=== PATIENT | male | born 1965 | race Caucasian/White ===

== ENCOUNTER 2020-04-12 16:33 | Emergency (ER) | payer OTHER, SELFPAY ==
[2020-04-12] VITALS (7 sets, daily range): BP systolic 109–127; BP diastolic 66–75; PULSE 79–98; RESP 15–21; TEMP 36.8; O2SAT 95–98; BMI 21.8
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
[2020-04-12] MEDS: ibuprofen 600 mg Tablet PO (18:00)
[2020-04-12] MEDS: iohexol 300 mg/mL 100 mL Btl IV (18:27)
[2020-04-12] MEDS: sodium chloride 0.9% 1,000 ML 125 ML IV (18:33)
[2020-04-12 18:48] LABS: Basophils % 0.2 %; Eosinophils % 0.1 %; Hematocrit 42.8 % (42.0-52.0); Hemoglobin 13.8 g/dL (11.7-16.6); Lymphocytes # 0.6 10^3/uL (0.8-4.8); Lymphocytes % 3.4 %; Mean Corpuscular HGB Conc 32.2 g/dL (30.0-36.0); Mean Corpuscular Hemoglobin 30.4 pg (28.0-34.0); Mean Corpuscular Volume 94.3 fL (80-94); Mean Platelet Volume 9.8 fL (7.4-10.4); Monocytes # 0.7 10^3/uL (0.2-0.9); Monocytes % 4.2 %; Neutrophils # 15.99 10^3/uL (1.8-7.7); Neutrophils % 91.2 %; Nucleated Red Blood Cells % 0 %; Platelet Count 189 10^3/cmm (130-400); Red Blood Count 4.54 10^6/uL (4.1-5.3); Red Cell Distribution Width 11.9 % (12.1-15.1); White Blood Count 17.5 10^3/uL (4.0-10.0)
[2020-04-12 19:14] LABS: Alanine Aminotransferase 27 U/L (0-41); Albumin Level 4.2 g/dL (3.5-5.2); Alkaline Phosphatase 65 IU/L (40-130); Blood Urea Nitrogen 22 mg/dL (6-20); Carbon Dioxide 24 mmol/L (22-29); Chloride 103 mmol/L (98-107); Globulin 2.3 g/dL (1.3-4.6); Glomerular Filtration Rate 69.2 mL/min (90-130); Glucose 161 mg/dL (65-115); Osmolality Calculated 286 mOsm/kg (285-295); Sodium 138 mmol/L (136-145); Total Bilirubin 0.6 mg/dL (0.15-1.2); Total Protein 6.5 g/dL (6.6-8.7)
[2020-04-12 19:19] LABS: Anion Gap 14.9 (5-19); Aspartate Amino Transferase 41 U/L (0-40); Potassium 3.9 mmol/L (3.5-5.1)
[2020-04-12] MEDS: morphine 4 mg/mL SDV 1 mL IVP (19:32)
[2020-04-12] MEDS: ondansetron 2 mg/ML SDV 2 mL 4 MG IVP (19:32)
[2020-04-12 19:37] LABS: Glucose Urine UA Trace (Normal); Protein Urine Trace (Negative); Specific Gravity, Urine 1.015 (1.005-1.030); Urine Appearance Clear (CLEAR); Urine Color Yellow (Yellow); pH Urine 5 (5-7)
[2020-04-12 19:38] LABS: Add Urine Microscopic? YES; Bilirubin Urine Neg (NEGATIVE); Blood Urine 3+ (Negative); Ketones Urine Negative (Negative); Leukocyte Esterase Urine Negative (Negative); Nitrate Urine Negative (Negative); Urobilinogen Urine Norm (Negative)
[2020-04-12 19:39] LABS: Add Urine Culture? No; Amorphous Sediment Urine 1+; Bacteria Urine TRACE; Coarse Granular Casts Urine 0-4 /lpf; Hyaline Casts Urine 0-4; Mucus Urine 36; Squamous Epithelial Cell Urine 0-4 (0-5); WBC Urine 0-4 /hpf (0-5)
--- NOTE | 2020-04-12 19:40 | XRR_ITS ---
PROCEDURE INFORMATION: Exam: XR Chest, 1 View Exam date and time: 04/12/2020 7:54 PM Age: 55 years old Clinical indication: Device placement; Patient HX: Chest tube placement TECHNIQUE: Imaging protocol: XR of the chest Views: 1 view. COMPARISON: CT chest abd pel w con* 04/12/2020 6:22 PM FINDINGS: Tubes, catheters and devices: There is a left-sided chest tube with the tip directed inferiorly. Lungs: There is marked improvement of the left-sided pneumothorax and only a small apical component remains. Probable left pulmonary contusion or volume loss is noted. The right lung is clear. Pleural space: See Lungs finding. Heart/Mediastinum: Unremarkable. No cardiomegaly. Bones/joints: Multiple left rib fractures and left clavicle fracture are noted. Soft tissues: There is abundant subcutaneous emphysema along the left chest wall. XR/XR chest 1V portable [id number] IMPRESSION: 1. Marked improvement of the left pneumothorax after chest tube placement and only small apical component remains. 2. Multiple rib fractures, probable pulmonary contusion and left clavicle fracture are noted.
--- NOTE | 2020-04-12 20:48 | PC.NURSE ---
Spoke to patient and family and advised that neither [facility] nor [facility] had beds available at this time and asked where else they would like to go, I advised that we could try [facility] or [place], they wanted to go to [place]. I advised Dr. Cleary
== END 2020-04-12 22:33 | disposition short-term general hospital (02) ==
PROVIDERS: Nurse Practitioner Family; Emergency Provider Family Medicine; PCP Nurse Practitioner
DX: S27.322A Contusion of lung, bilateral, initial encounter (principal); S42.032A Displaced fracture of lateral end of left clavicle, initial encounter for closed fracture; S27.0XXA Traumatic pneumothorax, initial encounter; S22.42XA Multiple fractures of ribs, left side, initial encounter for closed fracture; V86.56XA Driver of dirt bike or motor/cross bike injured in nontraffic accident, initial encounter
CPT/HCPCS: 12345; 32551; 71045; 71101; 71260; 72040; 72072; 73030; 73562; 74177; 80053; 81001; 85025; 96361; 96374; 96375; 99283; 99291; J2270; J2405; J7030; Q9967

== ENCOUNTER → 2020-05-18 14:49 | Outpatient (BNVA) | payer OTHER, SELFPAY | PROVIDERS: PCP Nurse Practitioner; Visit Provider Nurse Practitioner | DX: S42.002A Fracture of unspecified part of left clavicle, initial encounter for closed fracture (principal); X58.XXXA Exposure to other specified factors, initial encounter | CPT/HCPCS: 73030 ==

== ENCOUNTER → 2023-10-15 15:55 | Outpatient (BNVA) | payer SELFPAY | PROVIDERS: PCP Nurse Practitioner; Visit Provider Nurse Practitioner Family | DX: R50.9 Fever, unspecified (principal) | CPT/HCPCS: 87400 ==